=== PATIENT | male | born 1975 | race Caucasian/White ===

== ENCOUNTER 2016-07-23 12:48 | Emergency (ER) | payer MEDICAID, OTHER ==
[2016-07-23 13:38] VITALS: BP 107/80
[2016-07-23] MEDS ORDERED: Aspirin TAB* 325 MG PO ONE (13:55)
--- NOTE | 2016-07-23 13:58 | UC ---
Dizzy HPI HPI Summary: pt presents with co/o chest pain and dizziness that began on 07/22/16. Pt reports that chest pain began while lying on his bed and worsened with exertion. Dizziness accompanied chest pain. pt reports that in June 2016, he was told that he "had diabetes" by a health care provider at [facility]. Pt has not followed up with a PCP regarding this diagnosis that is new to him. Pt has positive FMH of DM and CAD and HI. Pt reports that prior to arrival to , he felt dizzy and fell ldown one step and hit left side of chest. Now c/o chest pain and difficulty breathing. - History Of Current Complaint Stated Complaint: DIZZY Time Seen by Provider: 07/23/16 13:21 Hx Obtained From: Patient Onset/Duration: Sudden Onset, Lasting Minutes Timing: Minutes Severity Initially: Mild Severity Currently: Mild Character: Dizzy Aggravating Factor(s): Exertion Alleviating Factor(s): Rest Associated Signs And Symptoms: Positive: Chest Pain, SOB - Risk Factors Cardiac Risk Factors: Diabetes - undiagnosed, unmonitored, Family History CVA Risk Factor: Diabetes - Allergies/Home Medications Allergies/Adverse Reactions: Allergies Allergy/AdvReac Type Severity Reaction Status Date / Time Chocolate Allergy See Comment Verified 07/23/16 13:23 Home Medications: Home Medications Ibuprofen [Advil] 600 mg PO ONCE PRN 07/23/16 [History Confirmed 07/23/16] PMH/Surg Hx/FS Hx/Imm Hx - Additional Past Medical History Additional PMH: pt has mild cognitive impairment. Previously Healthy: Yes - Surgical History Surgical History: None - Family History Known Family History: Positive: Cardiac Disease, Diabetes - Social History Lives: With Family Alcohol Use: Occasionally Substance Use Type: None Smoking Status (MU): Current Some Day Smoker Type: Smokeless Tobacco Amount Used/How Often: 1 can daily When Did the Patient Quit Smoking/Using Tobacco: quit smoking when 15 yrs old Review of Systems Constitutional: Negative Skin: Negative Eyes: Negative ENT: Negative Respiratory: Shortness Of Breath Cardiovascular: Chest Pain Gastrointestinal: Negative Genitourinary: Negative Motor: Negative Neurovascular: Negative Musculoskeletal: Negative Neurological: Negative Psychological: Negative All Other Systems Reviewed And Are Negative: Yes Physical Exam Triage Information Reviewed: Yes Appearance: Well-Appearing Vital Signs: Initial Vital Signs Temp 97.5 F 07/23/16 13:24 Pulse 69 07/23/16 13:24 Resp 20 07/23/16 13:24 BP 107/80 07/23/16 13:24 Pulse Ox 96 07/23/16 13:24 ENT Exam: Normal Neck exam: Normal Respiratory Exam: Normal Cardiovascular Exam: Normal Musculoskeletal Exam: Normal Neurological Exam: Normal Psychological Exam: Normal Skin Exam: Normal Dizzy Course/Dx - Differential Dx/Diagnosis Differential Diagnosis/HQI/PQRI: Coronary Artery Disease, Myocardial Infarction , Other Provider Diagnoses: chest pain. diabetes unmanaged. syncope - Physician Notifications Discussed Patient Care With: Opal Amaro at [facility] Time Discussed With Above Provider: 14:07 - Opal amaro accepted Instructed by Provider To: Transfer Discharge - Discharge Plan Condition: Stable Disposition: TRANS [facility] Patient Education Materials: Chest Pain (ED) Referrals: No Primary Care Phys,NOPCP [Primary Care Provider] - [facility] [place] [facility] [Outside]
[2016-07-23] MEDS ORDERED: Aspirin Low Dose CHEW TAB* 81 MG PO ONE (14:10)
== END 2016-07-23 14:21 | disposition short-term general hospital (02) ==
LOC: UCCORT 12:48
DX: R07.89 Other chest pain (principal); R55 Syncope and collapse; Z72.0 Tobacco use; E13.9 Other specified diabetes mellitus without complications
CPT/HCPCS: 93005; 99203; G0463

== ENCOUNTER 2017-04-26 13:39 | Emergency (ER) | payer OTHER ==
[2017-04-26 13:50] VITALS: BP 125/90
[2017-04-26] MEDS ORDERED: LORazepam TAB(*) 1 MG PO ONE (15:17)
[2017-04-26] MEDS ORDERED: Lidocaine 1% MPF wEPI 200,000* 30 ML SDV INJ ONE (15:22)
[2017-04-26] MEDS ORDERED: Cephalexin CAP* 500 MG PO ONE ×2 (16:27→16:29)
--- NOTE | 2017-04-26 16:30 | ED ---
Laceration/Wound HPI - HPI Summary HPI Summary: Patient presents to the ED with lower lip laceration. He states he fell while working and cut his lip on his tooth. He has had stitches in the same location a few years ago from the same type of injury. Minimal blood loss. Denies hitting his head or LOC. Denies memory loss, confusion, visual changes. Denies blood thinners. The laceration appears to be deep and located on the right lower lip sparing the vermilion border. The laceration spans from the inferior lower lip to the outer body of the lip. Denies numbness or tingling. - History of Current Complaint Stated Complaint: FALL LIP INJURY Time Seen by Provider: 04/26/17 13:53 Hx Obtained From: Patient Mechanism of Injury: Sharp/Blunt Trauma Onset/Duration: Sudden Onset Aggravating: Movement Alleviating: Compression Timing: Constant Onset Severity: Mild Current Severity: Mild Pain Intensity: 4 Pain Scale Used: 0-10 Numeric Associated Signs & Symptoms: Negative - Allergy/Home Medications Allergies/Adverse Reactions: Allergies Allergy/AdvReac Type Severity Reaction Status Date / Time Chocolate Allergy See Comment Verified 07/23/16 13:23 PMH/Surg Hx/FS Hx/Imm Hx Previously Healthy: Yes - Immunization History Date of Tetanus Vaccine: unknown Date of Influenza Vaccine: never Hx Pertussis Vaccination: No Immunizations Up to Date: Unable to Obtain/Confirm Infectious Disease History: No Infectious Disease History: Denies: Traveled Outside the [place] in Last 30 Days - Family History Known Family History: Positive: Cardiac Disease, Diabetes - Social History Occupation: Employed Full-time Lives: With Family Alcohol Use: Occasionally Hx Substance Use: No Substance Use Type: Reports: None Hx Tobacco Use: Yes Smoking Status (MU): Current Some Day Smoker Type: Smokeless Tobacco Amount Used/How Often: 1 can daily Review of Systems Constitutional: Negative Negative: Fever, Fatigue, Skin Diaphoresis Eyes: Negative Cardiovascular: Negative Respiratory: Negative Positive: no symptoms reported, see HPI Negative: Arthralgia, Myalgia Positive: Other - lip laceration Neurological: Negative All Other Systems Reviewed And Are Negative: Yes Physical Exam Triage Information Reviewed: Yes Vital Signs On Initial Exam: Initial Vitals Temp Pulse Resp BP Pulse Ox 97.7 F 62 18 125/90 97 04/26/17 13:47 04/26/17 13:47 04/26/17 13:47 04/26/17 13:47 04/26/17 13:47 Vital Signs Reviewed: Yes Appearance: Positive: Well-Appearing, Well-Nourished Skin: Positive: Warm, Skin Color Reflects Adequate Perfusion Head/Face: Positive: Normal Head/Face Inspection Eyes: Positive: EOMI, DINAH, Conjunctiva Clear Neck: Positive: Supple, No Lymphadenopathy Respiratory/Lung Sounds: Positive: Clear to Auscultation, Breath Sounds Present Cardiovascular: Positive: RRR, Pulses are Symmetrical in both Upper and Lower Extremities Musculoskeletal: Positive: Normal, Strength/ROM Intact Neurological: Positive: Speech Normal Psychiatric: Positive: Normal AVPU Assessment: Alert - [place] Coma Scale Coma Scale Total: 15 Procedures - Laceration/Wound Repair 1 Location: mouth Description: Linear Anesthesia: Local - mental block Betadine Prep?: No Suture Type: Prolene Number of Sutures: 3 Layer Closure?: No Sterile Dressing Applied?: No Diagnostics - Vital Signs Vital Signs Temp Pulse Resp BP Pulse Ox 04/26/17 15:30 18 04/26/17 13:47 97.7 F 62 18 125/90 97 - Laboratory Lab Statement: Any lab studies that have been ordered have been reviewed, and results considered in the medical decision making process. Laceration Repair Course/Dx - Course Course Of Treatment: Lip laceration measuring 1.5cm from inferior lower lip to the outer body of the lip sparing the mitzy border of the lower lip. Deep. Minimal blood loss. Right mental block with lido without epi placed. 4 deep sutures placed, which subsequently came out after patient was manipulating the area. 3 5-0 sutures placed in the inferior and outer lip with effect. Appropriated well. Patient given 1 day of pain management and is OK for discharge. He will return in 4 days for suture removal. Discussed treatment options available to the patient. They understand at this time and voice no concerns over discharge plan. Return precautions are explained in depth and patient agrees to follow up if needed. - Differential Dx Differental Diagnoses: Laceration - Clinical Impression Provider Diagnoses: Laceration of lip Discharge - Discharge Plan Condition: Stable Disposition: HOME Prescriptions: Cephalexin CAP* [Keflex CAP*] 500 mg PO QID #20 cap traMADol TAB* [Ultram*] 25 mg PO Q8H PRN #6 tab MDD 3 PRN Reason: Pain Patient Education Materials: Care For Your Absorbable Stitches (ED) Referrals: No Primary Care Phys,NOPCP [Primary Care Provider] - Additional Instructions: If they begin to fall out tomorrow, you may just pull them out with tweezers - this is normal Your lip is already healing well and should be OK in a few days Do not eat anything with sharp edges or with salt Soft foods and cold drinks/icecream is best right now Images - Images Dental: 1 - Lip laceration measuring 1.5cm from inferior lower lip to the outer body of the lip sparing the mitzy border of the lower lip. Deep. Minimal blood loss.
[2017-04-26] MEDS ORDERED: traMADol TAB* 50 MG PO ONE (16:49)
== END 2017-04-26 17:40 | disposition home or self-care (01) ==
LOC: ED 13:39
DX: S01.511A Laceration without foreign body of lip, initial encounter (principal); W19.XXXA Unspecified fall, initial encounter; Y93.89 Activity, other specified; Y92.9 Unspecified place or not applicable; Y99.0 Civilian activity done for income or pay; F17.220 Nicotine dependence, chewing tobacco, uncomplicated
CPT/HCPCS: 12011; 99282; A9270-GY; J2001

== ENCOUNTER 2017-09-21 20:55 | Emergency (ER) | payer OTHER ==
[2017-09-21 20:59] VITALS: BP 140/80
--- NOTE | 2017-09-21 21:18 | ED ---
Lower Extremity - HPI Summary HPI Summary: 42-year-old male presents with left great toe discoloration for some time. He states has notice some redness around toe the past couple days. He states has been dropping stuff on toe. He is not diabetic. no drainage from area. does not have a doctor. He denies any numbness or tingling. He has full ROM of toe. - History of Current Complaint Chief Complaint: EDExtremityLower Stated Complaint: FLT TOE INJURY Time Seen by Provider: 09/21/17 21:02 Pain Intensity: 2 - Allergies/Home Medications Allergies/Adverse Reactions: Allergies Allergy/AdvReac Type Severity Reaction Status Date / Time chocolate flavor Allergy Severe See Comment Verified 09/21/17 21:01 PMH/Surg Hx/FS Hx/Imm Hx Endocrine/Hematology History: Denies: Hx Anticoagulant Therapy Cardiovascular History: Denies: Hx Myocardial Infarction - Immunization History Date of Tetanus Vaccine: unknown Date of Influenza Vaccine: never Infectious Disease History: No Infectious Disease History: Denies: Traveled Outside the [place] in Last 30 Days - Family History Known Family History: Positive: Cardiac Disease, Diabetes - Social History Alcohol Use: Occasionally Hx Substance Use: No Substance Use Type: Reports: None Hx Tobacco Use: Yes Smoking Status (MU): Current Some Day Smoker Type: Smokeless Tobacco Amount Used/How Often: 1 can daily Review of Systems Negative: Fever Negative: Chest Pain Negative: Shortness Of Breath Positive: Other - nail left great toe discolorization All Other Systems Reviewed And Are Negative: Yes Physical Exam Triage Information Reviewed: Yes Vital Signs On Initial Exam: Initial Vitals Temp Pulse Resp BP Pulse Ox 97.3 F 78 16 140/80 97 09/21/17 20:57 09/21/17 20:57 09/21/17 20:57 09/21/17 20:57 09/21/17 20:57 Vital Signs Reviewed: Yes Appearance: Positive: Well-Appearing Skin: Positive: Warm, Dry, Other - blueish-green left toe nail with minimial erythema around no warmth to touch or edema Head/Face: Positive: Normal Head/Face Inspection Eyes: Positive: Normal, Conjunctiva Clear Respiratory/Lung Sounds: Positive: Clear to Auscultation, Breath Sounds Present Cardiovascular: Positive: Normal, RRR Musculoskeletal: Positive: Normal Neurological: Positive: Normal Psychiatric: Positive: Normal Diagnostics - Vital Signs Vital Signs Temp Pulse Resp BP Pulse Ox 09/21/17 20:57 97.3 F 78 16 140/80 97 - Laboratory Lab Statement: Any lab studies that have been ordered have been reviewed, and results considered in the medical decision making process. Lower Extremity Course/Dx - Course Course Of Treatment: 42-year-old male presents with left great toe discoloration for some time. He states has notice some redness around toe the past couple days. He states has been dropping stuff on toe. He is not diabetic. no drainage from area. does not have a doctor. He denies any numbness or tingling. He has full ROM of toe. on exam has bluish-green left great toe nail. sensation grossly intact. minimial erythema around toe with no edema and not warm to touch. will have do warm soaks and place on keflex. could be fungal or subungual hematoma? will have follow up with podiatry for further evuluation. patient understand and agrees with plan. - Diagnoses Differential Diagnosis/HQI/PQRI: Positive: Cellulitis, Other - subungual hematoma, tinea, paronychia Provider Diagnoses: Pain of left great toe, Nail discoloration Discharge - Discharge Plan Condition: Good Disposition: HOME Prescriptions: Cephalexin CAP* [Keflex CAP*] 500 mg PO BID #13 cap Referrals: [facility] [place] [facility] [Outside] Additional Instructions: Do warm soaks in epison salt twice a day Take keflex twice a day for 7 days Establish care with primary Follow up with podiatry Take ibuprofen for pain every 6 hours Return to ED if develop any new or worsening symptoms
[2017-09-21] MEDS ORDERED: Cephalexin CAP* 500 MG PO ONE (21:30)
== END 2017-09-21 21:44 | disposition home or self-care (01) ==
LOC: ED 20:55
DX: M79.675 Pain in left toe(s) (principal); L60.8 Other nail disorders; Z72.0 Tobacco use
CPT/HCPCS: 99282; A9270-GY

== ENCOUNTER 2019-01-21 15:05 | Emergency (ER) | payer OTHER ==
[2019-01-21 15:50] VITALS: BP 116/80
--- NOTE | 2019-01-21 16:38 | UC ---
Shoulder Pain HPI - HPI Summary HPI Summary: 43-year-old male comes in with a chief complaint of right shoulder pain. He recently fell on it and then went to the [place] emergency department where he had x-rays and he had a fractured clavicle. He reports having seen orthopedics yesterday but he does not remember which orthopedist. Patient has been taking ibuprofen 600 mg twice a day and he said is not helping much with the pain. No complaint of weakness numbness. Pain is worse with movement. He does have the arm in a sling. - History of Current Complaint Chief Complaint: UCUpperExtremity Stated Complaint: DIAG RIGHT SHOULDER BREAK STILL IN PAIN Time Seen by Provider: 01/21/19 16:24 Pain Intensity: 10 - Allergies/Home Medications Allergies/Adverse Reactions: Allergies Allergy/AdvReac Type Severity Reaction Status Date / Time chocolate flavor Allergy Severe See Comment Verified 01/21/19 15:50 PMH/Surg Hx/FS Hx/Imm Hx Previously Healthy: Yes Other History Of: Negative For: Anticoagulant Therapy - Surgical History Surgical History: None - Family History Known Family History: Positive: Cardiac Disease, Diabetes - Social History Alcohol Use: Rare Substance Use Type: None Smoking Status (MU): Former Smoker Type: Smokeless Tobacco Amount Used/How Often: 1 can daily When Did the Patient Quit Smoking/Using Tobacco: at 15yo Review of Systems All Other Systems Reviewed And Are Negative: Yes Constitutional: Positive: Negative Skin: Positive: Negative Eyes: Positive: Negative ENT: Positive: Negative Respiratory: Positive: Negative Cardiovascular: Positive: Negative Gastrointestinal: Positive: Negative Motor: Positive: Decreased ROM - RT SHOULDER Neurovascular: Positive: Negative Musculoskeletal: Positive: Other: - SEE HPI Neurological: Positive: Negative Psychological: Positive: Negative Is Patient Immunocompromised?: No Physical Exam Triage Information Reviewed: Yes Appearance: Well-Appearing, No Pain Distress, Well-Nourished Vital Signs: Initial Vital Signs Temp 98.1 F 01/21/19 15:43 Pulse 90 01/21/19 15:43 Resp 16 01/21/19 15:43 BP 116/80 01/21/19 15:43 Pulse Ox 98 01/21/19 15:43 Vital Signs Reviewed: Yes Eye Exam: Normal Eyes: Positive: Conjunctiva Clear Neck: Positive: Supple Respiratory: Positive: Lungs clear, Normal breath sounds, No respiratory distress Cardiovascular: Positive: RRR Musculoskeletal: Positive: Other: - Patient is tender to palpation in the distal right clavicle and in the right shoulder joint. His right arm is in a sling. His hand fingers wrists have full range of motion full-strength normal capillary refill normal radial pulses no sensation deficit. He declines range of motion with the right shoulder secondary to pain. Neurological: Positive: Alert Psychological: Positive: Age Appropriate Behavior Skin Exam: Normal Shoulder Course/Dx - Course Course Of Treatment: Patient was taking ibuprofen 600 mg twice a day. The patient for ibuprofen 800 mg 3 times a day. Also recommended adding acetaminophen if needed. Follow up with orthopedics reevaluation sooner if worse or any questions or concerns. - Differential Dx/Diagnosis Provider Diagnosis: Right shoulder pain Discharge - Sign-Out/Discharge Documenting (check all that apply): Patient Departure All imaging exams completed and their final reports reviewed: No Studies - Discharge Plan Condition: Stable Disposition: HOME Prescriptions: Acetaminophen TAB* [Tylenol TAB*] 975 mg PO Q6H PRN #30 tab PRN Reason: Pain Ibuprofen TAB* [Motrin TAB* 800 MG] 800 mg PO TID PRN #20 tab PRN Reason: Pain Patient Education Materials: Shoulder Pain (ED) Referrals: [facility] [place] [facility] [place]Outside] Additional Instructions: FOLLOW UP WITH YOUR ORTHOPEDICS. GET REEVALUATED SOONER IF WORSE OR ANY QUESTIONS OR CONCERNS. - Billing Disposition and Condition Condition: STABLE Disposition: Home
== END 2019-01-21 17:14 | disposition home or self-care (01) ==
LOC: UCCORT 15:05
DX: M25.511 Pain in right shoulder (principal); F17.220 Nicotine dependence, chewing tobacco, uncomplicated
CPT/HCPCS: 99212; G0463